=== PATIENT | female | born 1975 | race Caucasian/White ===

== ENCOUNTER 2024-04-18 08:45 | Outpatient (RCR) | payer MEDICAID, SELFPAY ==
--- NOTE | 2024-04-18 09:00 | XR_ITS ---
Examination: Nuclear medicine parathyroid sestamibi scan Exam date and time: April 18, 2024 0903 hours INDICATIONS: Hyperparathyroidism diagnosis, hypercalcemia, vitamin D deficiency, elevated PTH TECHNIQUE AND FINDINGS: Intravenous ministration 25.3 mCi technetium 99m sestamibi Chest pain all images obtained extending to 4 hours Submandibular and thyroid activity noted No parathyroid adenoma depicted IMPRESSION: No parathyroid adenoma depicted
== END 2024-04-23 23:59 | disposition home or self-care (01) ==
LOC: SNUC 08:45
PROVIDERS: PCP Family Medicine; Referring Provider Internal Medicine Endocrinology, Diabetes & Metabolism; Visit Provider Internal Medicine Endocrinology, Diabetes & Metabolism
DX: E83.52 Hypercalcemia (principal); E21.3 Hyperparathyroidism, unspecified; M85.80 Other specified disorders of bone density and structure, unspecified site
CPT/HCPCS: 78070; A9500

== ENCOUNTER → 2024-04-18 | Outpatient (CLI) | payer MEDICAID, SELFPAY ==
--- NOTE | 2024-04-18 09:49 | XR_ITS ---
Examination: Abdomen AP single view Technique: AP portable supine abdomen, single view Exam date and time: April 19, 2019 5:10 AM INDICATIONS: Diagnosis hyperparathyroidism FINDINGS: Nonobstructive bowel gas pattern No free air The osseous structures are intact IMPRESSION: Nonobstructive bowel gas pattern
== END | disposition home or self-care (01) ==
PROVIDERS: PCP Family Medicine; Referring Provider Internal Medicine Endocrinology, Diabetes & Metabolism; Visit Provider Internal Medicine Endocrinology, Diabetes & Metabolism
DX: E21.3 Hyperparathyroidism, unspecified (principal)
CPT/HCPCS: 74018